=== PATIENT | female | born 1990 | race Caucasian/White ===

== ENCOUNTER 2018-05-21 17:38 | Inpatient (IN) | payer MEDICAID ==
[2018-05-21] MEDS ORDERED: Ondansetron 4 MG/2 ML SDV IVPUSH PRN (17:58)
[2018-05-21] MEDS ORDERED: Sodium Chloride 0.9% 10 ML Syringe FLUSH PRN (22:07)
[2018-05-21] MEDS ORDERED: Water For Irrigation,Sterile 1,000 ML Container IRR PRN (22:07)
[2018-05-21] MEDS ORDERED: Misoprostol 200 MCG Tab PO PRN (22:07)
[2018-05-21] MEDS ORDERED: Sodium Chloride 0.9% 2.5 ML Syringe FLUSH PRN (22:07)
[2018-05-21] MEDS ORDERED: Nalbuphine 10 MG/1 ML Vial IVPUSH PRN (22:07)
[2018-05-21] MEDS ORDERED: Lidocaine 1% 50 ML MDV INJECT PRN (22:07)
[2018-05-21] MEDS ORDERED: Tranexamic Acid 1,000 MG in Sodium Chloride 0.9% 100 ML IV PRN (22:07)
[2018-05-21] MEDS ORDERED: Ampicillin 2 GM in Sodium Chloride 0.9% 100 ML IV ONE (22:07)
[2018-05-21] MEDS ORDERED: Methylergonovine 0.2 MG/1 ML Amp IM PRN (22:07)
[2018-05-21] MEDS ORDERED: Butorphanol 1 MG/ML SDV IVPUSH PRN (22:07)
[2018-05-21] MEDS ORDERED: Carboprost Tromethamine 250 MCG/1 ML Amp IM PRN (22:07)
[2018-05-21] MEDS ORDERED: Oxytocin/0.9 % Sodium Chloride 30 UNIT/500 ML BAG IV SCH (22:15)
[2018-05-21] MEDS: Lactated Ringers 1,000 ML IV SCH (22:39)
[2018-05-22] MEDS ORDERED: fentaNYL 100 MCG/2 ML SDV ONE (01:24)
[2018-05-22] MEDS ORDERED: Bupivacaine 0.25% 10 ML SDV ONE (01:25)
--- NOTE | 2018-05-22 02:06 | PCM.PREANE ---
Preanesthetic Assessment - Anesthesia/Transfusion/Family Hx Anesthesia History: No Prior Anesthesia - Review of Systems General: No Symptoms Pulmonary: No Symptoms Cardiovascular: No Symptoms Gastrointestinal: No Symptoms Neurological: No Symptoms Other: Reports: None - Physical Assessment Height: 1.78 m Weight: 108.862 kg ASA Class: 2E Mental Status: Alert & Oriented x3 Dentition: Reports: Normal Dentition ROM/Head Extension: Full Lungs: Clear to Auscultation Cardiovascular: Regular Rate - Lab Values: Laboratory Last Values WBC 11.94 K/uL (4.0-11.0) H 05/21/18 22:31 RBC 3.82 M/uL (4.30-5.90) L 05/21/18 22:31 Hgb 11.5 g/dL (12.0-16.0) L 05/21/18 22: Hct 33.9 % (36.0-46.0) L 05/21/18 22:31 MCV 88.7 fL (80.0-98.0) 05/21/18 22: MCH 30.1 pg (27.0-32.0) 05/21/18 22: MCHC 33.9 g/dL (31.0-37.0) 05/21/18 22:31 RDW Std Deviation 45.2 fl (28.0-62.0) 05/21/18 22: RDW Coeff of Yohan 14 % (11.0-15.0) 05/21/18 22:31 Plt Count 186 K/uL (150-400) 05/21/18 22:31 MPV 12.30 fL (7.40-12.00) H 05/21/18 22:31 Nucleated RBC % 0.0 /100WBC 05/21/18 22:31 Nucleated RBCs # 0 K/uL 05/21/18 22:31 Blood Type AB POSITIVE 05/21/18 22:31 Antibody Screen NEGATIVE 05/21/18 22:31 - Allergies Allergies/Adverse Reactions: Allergies Allergy/AdvReac Type Severity Reaction Status Date / Time No Known Allergies Allergy Verified 03/31/14 06:45 - Acknowledgements Anesthesia Type Planned: Epidural Pt an Appropriate Candidate for the Planned Anesthesia: Yes Alternatives and Risks of Anesthesia Discussed w Pt/Guardian: Yes Pt/Guardian Understands and Agrees with Anesthesia Plan: Yes PreAnesthesia Questionnaire - Past Health History Medical/Surgical History: Denies Medical/Surgical History Cardiovascular History: Reports: None Respiratory History: Reports: None Gastrointestinal History: Reports: None Genitourinary History: Reports: None 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: , Spontaneous Musculoskeletal History: Reports: None, Other (See Below) Other Musculoskeletal History: Carpal tunnel syndrome Neurological History: Reports: None Psychiatric History: Reports: None Endocrine/Metabolic History: Reports: None Hematologic History: Reports: None Immunologic History: Reports: None Oncologic (Cancer) History: Reports: None Dermatologic History: Reports: None - Infectious Disease History Infectious Disease History: Reports: Chicken Pox - Past Surgical History Head Surgeries/Procedures: Reports: None - SUBSTANCE USE Smoking Status *Q: Never Smoker Tobacco Use Within Last Twelve Months: No Recreational Drug Use History: No - CURRENT (IN HOUSE) MEDS Current Meds: Current Medications Butorphanol Tartrate (Stadol) 1 mg IVPUSH Q1H PRN PRN Reason: Pain Carboprost Tromethamine (Hemabate Ds) 250 mcg IM ASDIRECTED PRN PRN Reason: Post Hemorrhage Tranexamic Acid 1,000 mg/ (Sodium Chloride) 110 mls @ 660 mls/hr IV ONETIME PRN PRN Reason: Bleeding Lactated Ringer's (Ringers, Lactated) 1,000 mls @ 150 mls/hr IV ASDIRECTED [facility] Last Admin: 05/21/18 22:39 Dose: 150 mls/hr Oxytocin/Sodium Chloride (Oxytocin 30 Unit/500 Ml-Ns) 30 unit in 500 mls @ 999 mls/hr IV TITRATE [facility] Ampicillin Sodium 1 gm/ Sodium (Chloride) 50 mls @ 100 mls/hr IV Q4H [facility] Lidocaine HCl (Xylocaine 1%) 50 ml INJECT ONETIME PRN PRN Reason: Laceration repair Methylergonovine Maleate (Methergine) 0.2 mg IM ASDIRECTED PRN PRN Reason: Post Hemorrhage Misoprostol (Cytotec) 200 mcg PO ONETIME PRN PRN Reason: Post Hemorrhage Nalbuphine HCl (Nubain) 10 mg IVPUSH Q1H PRN PRN Reason: Pain (severe 7-10) Ondansetron HCl (Zofran) 4 mg IVPUSH Q4H PRN PRN Reason: Nausea/Vomiting Sodium Chloride (Saline Flush) 10 ml FLUSH ASDIRECTED PRN PRN Reason: Keep Vein Open Sodium Chloride (Saline Flush) 2.5 ml FLUSH ASDIRECTED PRN PRN Reason: Keep Vein Open Sterile Water (Sterile Water For Irrigation) 1,000 ml IRR ASDIRECTED PRN PRN Reason: delivery Discontinued Medications Bupivacaine HCl (Sensorcaine-Mpf 0.25%) Confirm Administered Dose 10 ml .ROUTE .STK-MED ONE Stop: 05/22/18 01:26 Fentanyl (Sublimaze) Confirm Administered Dose 100 mcg .ROUTE .STK-MED ONE Stop: 05/22/18 01:25 Ampicillin Sodium 2 gm/ Sodium (Chloride) 100 mls @ 200 mls/hr IV ONETIME ONE Stop: 05/21/18 22:36 Last Admin: 05/21/18 22:42 Dose: 200 mls/hr Fentanyl/Bupivacaine HCl (Oxcxutzm-Btwlk-Ym 2 Mcg/Ml-0.125%) Confirm Administered Dose 100 mls @ as directed .ROUTE .STK-MED ONE Stop: 05/22/18 01:26
[2018-05-22] MEDS: Ampicillin 1 GM in Sodium Chloride 0.9% 50 ML IV SCH ×2 (02:45→06:36)
[2018-05-22] MEDS: Lactated Ringers 1,000 ML IV SCH (03:36)
[2018-05-22] MEDS ORDERED: Terbutaline 1 MG/ML SDV SUBCUT PRN (04:18)
[2018-05-22] MEDS ORDERED: Oxytocin/0.9 % Sodium Chloride 30 UNIT/500 ML BAG IV SCH (04:30)
[2018-05-22] MEDS ORDERED: Benzocaine/Menthol 20%-0.5% Spray 78 GM Cannister TOP PRN (09:22)
[2018-05-22] MEDS ORDERED: Bisacodyl 10 MG Supp RECTAL PRN (09:22)
[2018-05-22] MEDS ORDERED: Witch Hazel Medicated Pads 40/Jar TOP PRN (09:22)
[2018-05-22] MEDS ORDERED: Acetaminophen 500 MG Tab PO PRN (09:22)
[2018-05-22] MEDS ORDERED: Docusate Sodium 100 MG Cap PO PRN (09:22)
[2018-05-22] MEDS ORDERED: Aluminum Hydroxide/Magnesium Hydroxide/Simethicone Susp 30 ML Cup PO PRN (09:22)
[2018-05-22] MEDS ORDERED: Ibuprofen 800 MG Tab PO PRN (09:22)
[2018-05-22] MEDS ORDERED: Lanolin 100% Cream 7 GM Tube TOP PRN (09:22)
[2018-05-22] MEDS ORDERED: oxyCODONE 5 MG Tab PO PRN (09:22)
[2018-05-22] MEDS ORDERED: Ibuprofen 400 MG Tab PO PRN (09:22)
--- NOTE | 2018-05-22 09:29 | PCM.OPNOTE ---
- General Post-Op/Procedure Note Date of Surgery/Procedure: 05/22/18 Operative Procedure(s): /2nd MLL repaired Findings: Viable female APGARs 9, 9 weight 4270 gm. Spontaneous delivery intact placenta with 3V cord. Light meconium stained amniotic fluid. Pre Op Diagnosis: 39 week IUP. Labor Post-Op Diagnosis: Same Anesthesia Technique: Epidural Primary Surgeon: Mecca Wagner EBL in mLs: 250 Complications: none known Condition: Good Free Text/Narrative:: Dictation [id number]
--- NOTE | 2018-05-22 10:40 | OR ---
SURGEON: Mecca Wagner M.D. DATE OF PROCEDURE: 05/22/2018 PREOPERATIVE DIAGNOSES: 1. 39 weeks intrauterine . 2. Active labor. POSTOPERATIVE DIAGNOSES: 1. 39 weeks intrauterine . 2. Active labor. PROCEDURES: Spontaneous vaginal delivery. Second-degree midline laceration repaired. ANESTHESIA: Epidural. ESTIMATED BLOOD LOSS: 250 mL. FINDINGS: Viable female. scores 9 at 1 minute, 9 at 5 minutes. Weight 4270 g. Spontaneous delivery, intact placenta, 3-vessel cord, light meconium-stained amniotic fluid. DISPOSITION: The patient to [facility] and to nursery, stable. PROCEDURE IN DETAIL: Darlene is a 28-year-old, G7, P4-0-2-4 at 38 weeks 6 days upon admission on the evening of 05/21/2018, in early active labor. Upon admission, routine labs drawn, IV hydration was initiated. heart tones category 1. The patient progressed, became increasingly uncomfortable, underwent regional anesthesia for epidural, became more comfortable. She received her ampicillin prophylaxis x2 doses. Underwent amniotomy at approximately 3:00 a.m., light meconium-stained amniotic fluid was noted. She was found to be 5 cm at that time. The patient made slow progress for the next 2 hours, therefore was initiated on Pitocin augmentation. Shortly before 7:00 a.m., she was found to be 7 cm. Shortly before 9:00 a.m., I assumed care of th patient and she was found to be 9 cm and then progressed fairly rapidly to complete 100% effaced, +3 station, feeling the urge to push. Upon my arrival, the patient was placed in modified dorsal lithotomy position, was prepped and draped in the usual aseptic manner. With next contraction was able to push to deliver infant's head atraumatically, spontaneously, followed by anterior shoulder, posterior shoulder, and remainder of the body. The infant's oropharynx and nares bulb suctioned. Cord clamped x2 and cut. Infant was handed off to her mother, attending nursing staff at side. Cord arterial, cord venous, cord blood samples obtained. Light pressure was applied. The placenta was delivered spontaneously intact. Vigorous fundal uterine massage was then applied while 30 units of Pitocin was delivered in 500 mL of IV fluid. Upon inspection of cervix, vaginal sidewall, and perineum, there was found to be a second-degree midline laceration that was repaired using 3-0 Vicryl in the usual fashion. Uterus remained firm. Hemostasis remained evident. Sponge count and needle count were correct. The patient remained in LDRP, infant in nursery. RENETTA / JUWAN /[id number] MTDD
[2018-05-22] MEDS: Acetaminophen 500 MG Tab PO PRN ×2 (16:50→22:23)
--- NOTE | 2018-05-23 07:15 | PCM48HPAN ---
Post Anesthesia Note - EVALUATION WITHIN 48HRS OF ANESTHETIC Vital Signs in Normal Range: Yes Patient Participated in Evaluation: Yes Respiratory Function Stable: Yes Airway Patent: Yes Cardiovascular Function Stable: Yes Hydration Status Stable: Yes Pain Control Satisfactory: Yes Nausea and Vomiting Control Satisfactory: Yes Mental Status Recovered: Yes Resp Rate: 17
--- NOTE | 2018-05-23 08:43 | PCM.PNPP ---
- General Info Date of Service: 05/23/18 Functional Status: Reports: Pain Controlled, Tolerating Diet, Ambulating, Urinating - Review of Systems General: Reports: Fatigue. Denies: Fever, Weakness Pulmonary: Denies: Shortness of Breath Cardiovascular: Denies: Chest Pain, Palpitations, Lightheadedness Gastrointestinal: Denies: Abdominal Pain, Nausea, Vomiting Genitourinary: Denies: Flank Pain Skin: Reports: No Symptoms Psychiatric: Reports: No Symptoms - General Info Date of Service: 05/23/18 - Patient Data Vital Signs - Most Recent: Last Vital Signs Temp 36.0 C 05/22/18 16:30 Pulse 63 05/22/18 16:30 Resp 17 05/23/18 07:15 BP 119/68 05/22/18 16:30 Pulse Ox 98 05/22/18 16:30 Weight - Most Recent: 108.862 kg Lab Results - Last 24 Hours: Laboratory Results - last 24 hr 05/22/18 05/23/18 Range/Units 09:23 05:25 Hgb 10.5 L (12.0-16.0) g/dL Hct 31.3 L (36.0-46.0) % Cord ABG pH 7.230 (7.18-7.38) Cord ABG Base Excess -6 (-10--2) Cord VBG pH 7.294 (7.25-7.45) Cord VBG Base Excess -7 (-10--2) Med Orders - Current: Current Medications Acetaminophen (Tylenol Extra Strength) 500 mg PO Q4H PRN PRN Reason: Pain Acetaminophen (Tylenol Extra Strength) 1,000 mg PO Q4H PRN PRN Reason: Pain Last Admin: 05/22/18 22:23 Dose: 1,000 mg Al Hydroxide/Mg Hydroxide (Mag-Al Plus) 30 ml PO Q8H PRN PRN Reason: Heartburn Benzocaine/Menthol (Dermoplast Pain Relief 20%-0.5% [place]) 78 gm TOP ASDIRECTED PRN PRN Reason: Perineal Comfort Measure Bisacodyl (Dulcolax) 10 mg RECTAL ONETIME PRN PRN Reason: Constipation Carboprost Tromethamine (Hemabate Ds) 250 mcg IM ASDIRECTED PRN PRN Reason: Post Hemorrhage Docusate Sodium (Colace) 100 mg PO BID PRN PRN Reason: Constipation Last Admin: 05/22/18 23:47 Dose: 100 mg Emollient Ointment (Lansinoh Hpa) 0 gm TOP ASDIRECTED PRN PRN Reason: Sore Nipples Tranexamic Acid 1,000 mg/ (Sodium Chloride) 110 mls @ 660 mls/hr IV ONETIME PRN PRN Reason: Bleeding Lactated Ringer's (Ringers, Lactated) 1,000 mls @ 150 mls/hr IV ASDIRECTED [facility] Last Admin: 05/22/18 03:36 Dose: 125 mls/hr Oxytocin/Sodium Chloride (Oxytocin 30 Unit/500 Ml-Ns) 30 unit in 500 mls @ 999 mls/hr IV TITRATE [facility] Oxytocin/Sodium Chloride (Oxytocin 30 Unit/500 Ml-Ns) 30 unit in 500 mls @ 2 mls/hr IV TITRATE [facility]; Protocol Last Titration: 05/22/18 09:07 Dose: 999 munits/min, 999 mls/hr Ibuprofen (Motrin) 400 mg PO Q4H PRN PRN Reason: Pain Ibuprofen (Motrin) 800 mg PO Q6H PRN PRN Reason: Pain Methylergonovine Maleate (Methergine) 0.2 mg IM ASDIRECTED PRN PRN Reason: Post Hemorrhage Ondansetron HCl (Zofran) 4 mg IVPUSH Q4H PRN PRN Reason: Nausea/Vomiting Oxycodone HCl (Oxycodone) 5 mg PO Q2H PRN PRN Reason: Pain Sodium Chloride (Saline Flush) 10 ml FLUSH ASDIRECTED PRN PRN Reason: Keep Vein Open Sodium Chloride (Saline Flush) 2.5 ml FLUSH ASDIRECTED PRN PRN Reason: Keep Vein Open Sterile Water (Sterile Water For Irrigation) 1,000 ml IRR ASDIRECTED PRN PRN Reason: delivery Last Admin: 05/22/18 09:05 Dose: 1,000 ml Witch Fe (Tucks) 1 pad TOP ASDIRECTED PRN PRN Reason: comfort care Discontinued Medications Bupivacaine HCl (Sensorcaine-Mpf 0.25%) Confirm Administered Dose 10 ml .ROUTE .STK-MED ONE Stop: 05/22/18 01:26 Butorphanol Tartrate (Stadol) 1 mg IVPUSH Q1H PRN PRN Reason: Pain Fentanyl (Sublimaze) Confirm Administered Dose 100 mcg .ROUTE .STK-MED ONE Stop: 05/22/18 01:25 Ampicillin Sodium 2 gm/ Sodium (Chloride) 100 mls @ 200 mls/hr IV ONETIME ONE Stop: 05/21/18 22:36 Last Admin: 05/21/18 22:42 Dose: 200 mls/hr Ampicillin Sodium 1 gm/ Sodium (Chloride) 50 mls @ 100 mls/hr IV Q4H [facility] Last Admin: 05/22/18 06:36 Dose: 100 mls/hr Fentanyl/Bupivacaine HCl (Kktkiuqh-Ntfxd-Pp 2 Mcg/Ml-0.125%) Confirm Administered Dose 100 mls @ as directed .ROUTE .STK-MED ONE Stop: 05/22/18 01:26 Lidocaine HCl (Xylocaine 1%) 50 ml INJECT ONETIME PRN PRN Reason: Laceration repair Misoprostol (Cytotec) 200 mcg PO ONETIME PRN PRN Reason: Post Hemorrhage Nalbuphine HCl (Nubain) 10 mg IVPUSH Q1H PRN PRN Reason: Pain (severe 7-10) Terbutaline Sulfate (Brethine) 0.25 mg SUBCUT ASDIRECTED PRN PRN Reason: Tacysystole - Infant Interaction Support Person: - Recovery Exam Fundal Tone: Firm Fundal Level: At Umbilicus Fundal Placement: Midline Lochia Amount: Small Lochia Color: Rubra/Red Perineum Description: Edematous Episiotomy/Laceration: None Bladder Status: Voiding Urinary Elimination: Voided - Exam General: Alert, Oriented Lungs: Normal Respiratory Effort Cardiovascular: Regular Rate, Regular Rhythm GI/Abdominal Exam: Normal Bowel Sounds, Soft Extremities: Pedal Edema (trace), Pallor. No: Radha's Sign Skin: Warm, Dry, Intact Neurological: No New Focal Deficit Psy/Mental Status: Alert, Normal Affect, Normal Mood - Problem List & Annotations (1) Vaginal delivery SNOMED Code(s): 644868941 Code(s): O80 - ENCOUNTER FOR FULL-TERM UNCOMPLICATED DELIVERY Status: Acute Current Visit: No - Problem List Review Problem List Initiated/Reviewed/Updated: Yes - My Orders Last 24 Hours: My Active Orders 05/22/18 09:22 Patient Status [ADT] Routine May Shower [RC] ASDIRECTED Up ad Cynthia [RC] ASDIRECTED Vital Signs [RC] PER UNIT ROUTINE Acetaminophen [Tylenol Extra Strength] 1,000 mg PO Q4H PRN Acetaminophen [Tylenol Extra Strength] 500 mg PO Q4H PRN Alum Hydrox/Mag Hydrox/Simeth [Mag-Al Plus] 30 ml PO Q8H PRN Benzocaine/Menthol [Dermoplast Pain Relief 20%-0.5% [place]] 78 gm TOP ASDIRECTED PRN Bisacodyl [Dulcolax] 10 mg RECTAL ONETIME PRN Docusate Sodium [Colace] 100 mg PO BID PRN Ibuprofen [Motrin] 400 mg PO Q4H PRN Ibuprofen [Motrin] 800 mg PO Q6H PRN Lanolin [Lansinoh HPA] See Dose Instructions TOP ASDIRECTED PRN Witch Fe [Tucks] 1 pad TOP ASDIRECTED PRN oxyCODONE 5 mg PO Q2H PRN Assess Lochia [WOMSER] Per Unit Routine Assess Uterine Involution [WOMSER] Per Unit Routine Breast Pump [WOMSER] Per Unit Routine Ice Therapy [OM.PC] Per Unit Routine Perineal Care [OM.PC] Per Unit Routine Peripheral IV Discontinue [OM.PC] Routine 05/23/18 08:40 Ready for Discharge [RC] PER UNIT ROUTINE - Assessment Assessment:: PPD 1 status post /2nd MLL repaired - Plan Plan:: Doing well overall. VS and labs are stable. Would like to go home today. Discharge to home. Discharge instructions reviewed. Follow up at [facility] 6 weeks.
[2018-05-23 09:31] VITALS: BP 118/75
== END 2018-05-23 11:55 | disposition home or self-care (01) | DRG 807 ==
LOC: MW.OBCHECK 17:38 → MW.OB 17:40 → MW.OBCHECK 22:08 → MW.OB 05-22 04:41 → OBSVTOIN 05-22 09:07 → MW.OB 05-22 12:15
PROVIDERS: ADMIT Obstetrics & Gynecology; ATTEND Obstetrics & Gynecology
PROC: 10907ZC Drainage of Amniotic Fluid, Therapeutic from Products of Conception, Via Natural or Artificial Opening (ICD-10-PCS; principal; 2018-05-22)
PROC: 6A550ZT Pheresis of Cord Blood Stem Cells, Single (ICD-10-PCS; principal; 2018-05-22)
PROC: 0KQM0ZZ Repair Perineum Muscle, Open Approach (ICD-10-PCS; principal; 2018-05-22)
PROC: 10E0XZZ Delivery of Products of Conception, External Approach (ICD-10-PCS; principal; 2018-05-22)
PROC: 3E0R3BZ Introduction of Anesthetic Agent into Spinal Canal, Percutaneous Approach (ICD-10-PCS; 2018-05-22)
PROC: 00HU33Z Insertion of Infusion Device into Spinal Canal, Percutaneous Approach (ICD-10-PCS; 2018-05-22)
DX: O99.824 Streptococcus B carrier state complicating childbirth (principal); Z37.0 Single live birth; O77.0 Labor and delivery complicated by meconium in amniotic fluid; O70.1 Second degree perineal laceration during delivery; Z3A.38 38 weeks gestation of pregnancy
CPT/HCPCS: 36415; 59025; 59409; 82803; 85014; 85018; 85027; 86850; 86900; 86901; A9270-GY; J0290; J2590; J3010; J3490; J7030; J7050; J7120

== ENCOUNTER 2019-09-05 20:12 | Inpatient (IN) | payer BC ==
[2019-09-05] MEDS ORDERED: Sodium Chloride 0.9% 10 ML Syringe FLUSH PRN (22:05)
[2019-09-05] MEDS ORDERED: Sodium Chloride 0.9% 10 ML SDV IV PRN (22:05)
[2019-09-05] MEDS ORDERED: Butorphanol 1 MG/ML SDV IVPUSH PRN (22:05)
[2019-09-05] MEDS ORDERED: Methylergonovine 0.2 MG/1 ML Amp IM PRN (22:05)
[2019-09-05] MEDS ORDERED: Nalbuphine 10 MG/1 ML Vial IVPUSH PRN (22:05)
[2019-09-05] MEDS ORDERED: Carboprost Tromethamine 250 MCG/1 ML Amp IM PRN (22:05)
[2019-09-05] MEDS ORDERED: Misoprostol 200 MCG Tab PO PRN (22:05)
[2019-09-05] MEDS ORDERED: Water For Irrigation,Sterile 1,000 ML Container IRR PRN (22:05)
[2019-09-05] MEDS ORDERED: Tranexamic Acid 1,000 MG in Sodium Chloride 0.9% 100 ML IV PRN (22:05)
[2019-09-05] MEDS ORDERED: Lidocaine 1% 50 ML MDV INJECT PRN (22:05)
[2019-09-05] MEDS ORDERED: Sodium Chloride 0.9% 2.5 ML Syringe FLUSH PRN (22:05)
[2019-09-05] MEDS ORDERED: Oxytocin/0.9 % Sodium Chloride 30 UNIT/500 ML BAG IV SCH (22:15)
[2019-09-06] MEDS: Lactated Ringers 1,000 ML IV SCH ×2 (00:25→01:52)
[2019-09-06] MEDS ORDERED: Ropivacaine HCl/PF 100 ML ONE (01:09)
[2019-09-06] MEDS ORDERED: fentaNYL 100 MCG/2 ML SDV ONE (01:09)
--- NOTE | 2019-09-06 01:32 | PCM.PREANE ---
Preanesthetic Assessment - Anesthesia/Transfusion/Family Hx Anesthesia History: Prior Anesthesia Without Reaction Family History of Anesthesia Reaction: No Transfusion History: No Prior Transfusion(s) - Physical Assessment NPO Status Date: 09/05/19 NPO Status Time: 22:00 Height: 1.78 m Weight: 107.048 kg ASA Class: 1 - Lab Values: Laboratory Last Values WBC 11.87 K/uL (4.0-11.0) H 09/05/19 22:18 RBC 4.04 M/uL (4.30-5.90) L 09/05/19 22:18 Hgb 11.8 g/dL (12.0-16.0) L 09/05/19 22:18 Hct 35.9 % (36.0-46.0) L 09/05/19 22:18 MCV 88.9 fL (80.0-98.0) 09/05/19 22:18 MCH 29.2 pg (27.0-32.0) 09/05/19 22:18 MCHC 32.9 g/dL (31.0-37.0) 09/05/19 22:18 RDW Std Deviation 47.0 fl (28.0-62.0) 09/05/19 22:18 RDW Coeff of Yohan 14 % (11.0-15.0) 09/05/19 22:18 Plt Count 179 K/uL (150-400) 09/05/19 22:18 MPV 12.70 fL (7.40-12.00) H 09/05/19 22:18 Nucleated RBC % 0.0 /100WBC 09/05/19 22:18 Nucleated RBCs # 0 K/uL 09/05/19 22:18 Blood Type AB POSITIVE 09/05/19 22:18 Antibody Screen NEGATIVE 09/05/19 22:18 - Allergies Allergies/Adverse Reactions: Allergies Allergy/AdvReac Type Severity Reaction Status Date / Time No Known Allergies Allergy Verified 03/31/14 06:45 - Acknowledgements Anesthesia Type Planned: Epidural Pt an Appropriate Candidate for the Planned Anesthesia: Yes Alternatives and Risks of Anesthesia Discussed w Pt/Guardian: Yes Pt/Guardian Understands and Agrees with Anesthesia Plan: Yes PreAnesthesia Questionnaire - Past Health History Medical/Surgical History: Denies Medical/Surgical History Cardiovascular History: Reports: None Respiratory History: Reports: None Gastrointestinal History: Reports: None Genitourinary History: Reports: None 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: , Spontaneous Musculoskeletal History: Reports: Other (See Below) Other Musculoskeletal History: Carpal tunnel syndrome Neurological History: Reports: None Psychiatric History: Reports: None Endocrine/Metabolic History: Reports: None Hematologic History: Reports: None Immunologic History: Reports: None Oncologic (Cancer) History: Reports: None Dermatologic History: Reports: None - Infectious Disease History Infectious Disease History: Reports: Chicken Pox - Past Surgical History Head Surgeries/Procedures: Reports: None - SUBSTANCE USE Smoking Status *Q: Never Smoker Second Hand Smoke Exposure: No Recreational Drug Use History: No - HOME MEDS Home Medications: Home Meds . [No Known Home Meds] 09/05/19 [History] - CURRENT (IN HOUSE) MEDS Current Meds: Current Medications Butorphanol Tartrate (Stadol) 1 mg IVPUSH Q1H PRN PRN Reason: Pain Carboprost Tromethamine (Hemabate Ds) 250 mcg IM ASDIRECTED PRN PRN Reason: Post Hemorrhage Tranexamic Acid 1,000 mg/ (Sodium Chloride) 110 mls @ 660 mls/hr IV ONETIME PRN PRN Reason: Bleeding Lactated Ringer's (Ringers, Lactated) 1,000 mls @ 150 mls/hr IV ASDIRECTED [facility] Last Infusion: 09/06/19 01:19 Dose: 700 mls/hr Oxytocin/Sodium Chloride (Oxytocin 30 Unit/500 Ml-Ns) 30 unit in 500 mls @ 999 mls/hr IV TITRATE [facility] Lidocaine HCl (Xylocaine 1%) 50 ml INJECT ONETIME PRN PRN Reason: Laceration repair Methylergonovine Maleate (Methergine) 0.2 mg IM ASDIRECTED PRN PRN Reason: Post Hemorrhage Misoprostol (Cytotec) 200 mcg PO ONETIME PRN PRN Reason: Post Hemorrhage Nalbuphine HCl (Nubain) 10 mg IVPUSH Q1H PRN PRN Reason: Pain (severe 7-10) Sodium Chloride (Saline Flush) 10 ml FLUSH ASDIRECTED PRN PRN Reason: Keep Vein Open Sodium Chloride (Saline Flush) 2.5 ml FLUSH ASDIRECTED PRN PRN Reason: Keep Vein Open Sodium Chloride (Normal Saline) 10 ml IV ASDIRECTED PRN PRN Reason: IV Use Sterile Water (Sterile Water For Irrigation) 1,000 ml IRR ASDIRECTED PRN PRN Reason: delivery Discontinued Medications Fentanyl (Sublimaze) Confirm Administered Dose 100 mcg .ROUTE .STK-MED ONE Stop: 09/06/19 01:10 Ropivacaine (Naropin 0.2%) Confirm Administered Dose 100 mls @ as directed .ROUTE .STK-MED ONE Stop: 09/06/19 01:10
--- NOTE | 2019-09-06 01:35 | PCM.PRNOTE ---
- Free Text/Narrative Note: Anes Note Patient requests epidural for L&D. Sitting position, level L3-L4 midline approach. Chloraprep scrub to lumbar area. Sterile fenestrated drape applied. Epidural space easily achieved single attempt with ease using SAUNDRA technique. SAUNDRA at 4 cm. Cath threaded 5 cm with ease. Cath secured at skin at 11 cm using sterile clear adhesive dressing. Karen well Test 0125 3 cc 1.5% lido with epi negative. 0128 Load 10 cc 0.2% ropivicaine with 1 mcg cc fentanyl in slow divided doses. Time with patient [id number] Sean Alan CRNA
[2019-09-06] MEDS ORDERED: Oxytocin/0.9 % Sodium Chloride 30 UNIT/500 ML BAG IV SCH (02:15)
[2019-09-06] MEDS ORDERED: Docusate Sodium 100 MG Cap PO PRN (08:10)
[2019-09-06] MEDS ORDERED: Benzocaine/Menthol 20%-0.5% Spray 78 GM Cannister TOP PRN (08:10)
[2019-09-06] MEDS ORDERED: Acetaminophen 500 MG Tab PO PRN (08:10)
[2019-09-06] MEDS ORDERED: Witch Hazel Medicated Pads 40/Jar TOP PRN (08:10)
[2019-09-06] MEDS ORDERED: Lanolin 100% Cream 7 GM Tube TOP PRN (08:10)
[2019-09-06] MEDS ORDERED: Ibuprofen 400 MG Tab PO PRN (08:10)
[2019-09-06] MEDS ORDERED: Bisacodyl 10 MG Supp RECTAL PRN (08:10)
--- NOTE | 2019-09-06 08:17 | PCM.DEL ---
L & D Note - General Info Date of Service: 09/06/19 - Delivery Note Labor: Spontaneous, Augmented by ARM, Augmented by Oxytocin Delivery Outcome: Livebirth Infant Delivery Method: Spontaneous Vaginal Delivery-Single Presentation: Vertex Nuchal Cord: Present, Reduced Anesthesia Type: Epidural Amniotic Fluid Description: Clear Episiotomy Type: None Laceration: 1st Degree Suture size: 3-0 Placenta: Intact, Spontaneous Cord: 3 Vessels Resuscitation Needed: No [place]: Suctioned, Bulb Syringe - General Info Date of Service: 09/06/19 - Patient Data Weight - Most Recent: 236 lb Lab Results Last 24 Hours: Laboratory Results - last 24 hr 09/05/19 09/05/19 Range/Units 22:18 22:18 WBC 11.87 H (4.0-11.0) K/uL RBC 4.04 L (4.30-5.90) M/uL Hgb 11.8 L (12.0-16.0) g/dL Hct 35.9 L (36.0-46.0) % MCV 88.9 (80.0-98.0) fL MCH 29.2 (27.0-32.0) pg MCHC 32.9 (31.0-37.0) g/dL RDW Std Deviation 47.0 (28.0-62.0) fl RDW Coeff of Yohan 14 (11.0-15.0) % Plt Count 179 (150-400) K/uL MPV 12.70 H (7.40-12.00) fL Nucleated RBC % 0.0 /100WBC Nucleated RBCs # 0 K/uL Blood Type AB POSITIVE Antibody Screen NEGATIVE Med Orders - Current: Current Medications Acetaminophen (Tylenol Extra Strength) 500 mg PO Q4H PRN PRN Reason: Pain Acetaminophen (Tylenol Extra Strength) 1,000 mg PO Q4H PRN PRN Reason: Pain Benzocaine/Menthol (Dermoplast Pain Relief 20%-0.5% [place]) 78 gm TOP ASDIRECTED PRN PRN Reason: Perineal Comfort Measure Bisacodyl (Dulcolax) 10 mg RECTAL ONETIME PRN PRN Reason: Constipation Butorphanol Tartrate (Stadol) 1 mg IVPUSH Q1H PRN PRN Reason: Pain Carboprost Tromethamine (Hemabate Ds) 250 mcg IM ASDIRECTED PRN PRN Reason: Post Hemorrhage Docusate Sodium (Colace) 100 mg PO BID PRN PRN Reason: Constipation Emollient Ointment (Lansinoh Hpa) 0 gm TOP ASDIRECTED PRN PRN Reason: Sore Nipples Tranexamic Acid 1,000 mg/ (Sodium Chloride) 110 mls @ 660 mls/hr IV ONETIME PRN PRN Reason: Bleeding Lactated Ringer's (Ringers, Lactated) 1,000 mls @ 150 mls/hr IV ASDIRECTED BARBARA Last Infusion: 09/06/19 01:54 Dose: 150 mls/hr Oxytocin/Sodium Chloride (Oxytocin 30 Unit/500 Ml-Ns) 30 unit in 500 mls @ 999 mls/hr IV TITRATE BARBARA Last Infusion: 09/06/19 07:50 Dose: 500 mls/hr Oxytocin/Sodium Chloride (Oxytocin 30 Unit/500 Ml-Ns) 30 unit in 500 mls @ 2 mls/hr IV TITRATE [facility]; Protocol Last Infusion: 09/06/19 07:36 Dose: 0 munits/min, 0 mls/hr Ibuprofen (Motrin) 400 mg PO Q4H PRN PRN Reason: Pain Ibuprofen (Motrin) 800 mg PO Q6H PRN PRN Reason: Pain Lidocaine HCl (Xylocaine 1%) 50 ml INJECT ONETIME PRN PRN Reason: Laceration repair Methylergonovine Maleate (Methergine) 0.2 mg IM ASDIRECTED PRN PRN Reason: Post Hemorrhage Misoprostol (Cytotec) 200 mcg PO ONETIME PRN PRN Reason: Post Hemorrhage Nalbuphine HCl (Nubain) 10 mg IVPUSH Q1H PRN PRN Reason: Pain (severe 7-10) Sodium Chloride (Saline Flush) 10 ml FLUSH ASDIRECTED PRN PRN Reason: Keep Vein Open Sodium Chloride (Saline Flush) 2.5 ml FLUSH ASDIRECTED PRN PRN Reason: Keep Vein Open Sodium Chloride (Normal Saline) 10 ml IV ASDIRECTED PRN PRN Reason: IV Use Sterile Water (Sterile Water For Irrigation) 1,000 ml IRR ASDIRECTED PRN PRN Reason: delivery Last Admin: 09/06/19 07:30 Dose: 1,000 ml Witch Fe (Tucks) 1 pad TOP ASDIRECTED PRN PRN Reason: comfort care Discontinued Medications Fentanyl (Sublimaze) Confirm Administered Dose 100 mcg .ROUTE .STK-MED ONE Stop: 09/06/19 01:10 Ropivacaine (Naropin 0.2%) Confirm Administered Dose 100 mls @ as directed .ROUTE .STK-MED ONE Stop: 09/06/19 01:10 - Problem List Review Problem List Initiated/Reviewed/Updated: Yes - My Orders Last 24 Hours: My Active Orders 09/05/19 20:27 Resuscitation Status Routine 09/05/19 20:28 Non Stress Test [RC] PER UNIT ROUTINE Up ad Cynthia [RC] ASDIRECTED Vaginal Exam [RC] Click to Edit Vital Signs [RC] PER UNIT ROUTINE 09/05/19 22:05 Butorphanol [Stadol] 1 mg IVPUSH Q1H PRN Carboprost Tromethamine [Hemabate DS] 250 mcg IM ASDIRECTED PRN Lidocaine 1% [Xylocaine 1%] 50 ml INJECT ONETIME PRN Methylergonovine [Methergine] 0.2 mg IM ASDIRECTED PRN Nalbuphine [Nubain] 10 mg IVPUSH Q1H PRN Sodium Chloride 0.9% [Normal Saline] 10 ml IV ASDIRECTED PRN Sodium Chloride 0.9% [Saline Flush] 10 ml FLUSH ASDIRECTED PRN Sodium Chloride 0.9% [Saline Flush] 2.5 ml FLUSH ASDIRECTED PRN Tranexamic Acid [Cyklokapron] 1,000 mg Sodium Chloride 0.9% [Normal Saline] 100 ml IV ONETIME Water For Irrigation,Sterile [Sterile Water for Irrigation] 1,000 ml IRR ASDIRECTED PRN miSOPROStoL [Cytotec] 200 mcg PO ONETIME PRN 09/05/19 22:06 Heart Tones [RC] CONTINUOUS Non Stress Test [RC] PER UNIT ROUTINE May Shower [RC] ASDIRECTED Notify Provider [RC] PRN Up ad Cynthia [RC] ASDIRECTED Vaginal Exam [RC] PRN Vital Signs [RC] PER UNIT ROUTINE Scalp Electrode [WOMSER] Per Unit Routine Peripheral IV Insertion Adult [OM.PC] Routine 09/05/19 22:15 Lactated Ringers [Ringers, Lactated] 1,000 ml IV ASDIRECTED Oxytocin/0.9 % Sodium Chloride [Oxytocin 30 Unit/500 ML-NS] 30 unit in 500 ml IV TITRATE 09/05/19 22:18 RPR (SYPHILIS SERO) W/ RFLX [REF] Routine 09/06/19 02:15 Oxytocin/0.9 % Sodium Chloride [Oxytocin 30 Unit/500 ML-NS] 30 unit in 500 ml IV TITRATE 09/06/19 08:10 Patient Status [ADT] Routine May Shower [RC] ASDIRECTED Up ad Cynthia [RC] ASDIRECTED Vital Signs [RC] PER UNIT ROUTINE Acetaminophen [Tylenol Extra Strength] 1,000 mg PO Q4H PRN Acetaminophen [Tylenol Extra Strength] 500 mg PO Q4H PRN Benzocaine/Menthol [Dermoplast Pain Relief 20%-0.5% [place]] 78 gm TOP ASDIRECTED PRN Docusate Sodium [Colace] 100 mg PO BID PRN Ibuprofen [Motrin] 400 mg PO Q4H PRN Ibuprofen [Motrin] 800 mg PO Q6H PRN Lanolin [Lansinoh HPA] See Dose Instructions TOP ASDIRECTED PRN bisacodyL [Dulcolax] 10 mg RECTAL ONETIME PRN witch Fe [Tucks] 1 pad TOP ASDIRECTED PRN Assess Lochia [WOMSER] Per Unit Routine Assess Uterine Involution [WOMSER] Per Unit Routine Breast Pump [WOMSER] Per Unit Routine Peripheral IV Discontinue [OM.PC] Routine 09/06/19 08:11 Perineal Care [OM.PC] Per Unit Routine Sitz Bath [OM.PC] Per Unit Routine 09/06/19 Breakfast Regular Diet [DIET] 09/07/19 05:11 HEMOGLOBIN/HEMATOCRIT,HH [HEME] Timed - Assessment Assessment:: 29yo PPD0 s/p labor and uncomplicated at 40w1d - Plan Plan:: Routine care.
--- NOTE | 2019-09-06 08:42 | PCM48HPAN ---
Post Anesthesia Note - EVALUATION WITHIN 48HRS OF ANESTHETIC Vital Signs in Normal Range: Yes Patient Participated in Evaluation: Yes Respiratory Function Stable: Yes Airway Patent: Yes Cardiovascular Function Stable: Yes Hydration Status Stable: Yes Pain Control Satisfactory: Yes Nausea and Vomiting Control Satisfactory: Yes Mental Status Recovered: Yes
[2019-09-06] MEDS: Ibuprofen 800 MG Tab PO PRN ×3 (09:32→22:58)
--- NOTE | 2019-09-06 16:14 | OR ---
SURGEON: Alonso Ambriz MD DATE OF PROCEDURE: 09/06/2019 INDICATION FOR PROCEDURE: A 29-year-old G8, P5-0-2-5, presenting in early labor at 40 weeks and 2 day. The patient was initially 3 cm dilated and progressed to 4 cm after 2 hours. She received an epidural for pain. She continued to progress and had AROM for augmentation of labor. Her contractions spaced out. She was also given Pitocin for augmentation and progressed to fully dilated. She had category 1 tracing. GBS was negative. PREOPERATIVE DIAGNOSIS: Ald[place] intrauterine at 40 weeks and 2 day. POSTOPERATIVE DIAGNOSIS: Ald[place] intrauterine at 40 weeks and 2 day. PROCEDURE PERFORMED: Normal spontaneous vaginal delivery, repair of first-degree laceration. ANESTHESIA: Epidural. ANESTHESIOLOGIST: Dr. Smith. FINDINGS: Viable male , scores of 8 and 8, weight of 9 pounds. Nuchal cord x1, tight and reduced after delivery. ESTIMATED BLOOD LOSS: 200 mL. DESCRIPTION OF PROCEDURE: The patient pushed with contractions for approximately 10 minutes. head delivered in occiput anterior position over intact perineum. Anterior shoulder delivered easily. Tight nuchal cord was noted. Posterior shoulder then delivered followed by the remaining body. Nuchal cord was reduced after delivery. Baby was placed on maternal chest and evaluated by awaiting nursery staff. Baby was pink, crying, and moving all extremities immediately after delivery. Umbilical cord was clamped and cut after 60 seconds and no longer pulsating. The placenta was removed with gentle traction on the umbilical cord. Cord gases were obtained. The placenta was examined and found to be intact with 3-vessel cord. Uterus was firm and below the umbilicus and the bleeding was light. Perineum was examined and first-degree laceration was noted. It was repaired with 3-0 Vicryl in the usual fashion. Hemostasis was confirmed. The patient tolerated the procedure well, was given care instructions. JAZMYN / JUWAN /[id number] MTDD
[2019-09-06] MEDS: Acetaminophen 500 MG Tab PO PRN (21:34)
[2019-09-07] MEDS: Acetaminophen 500 MG Tab PO PRN (03:45)
[2019-09-07] MEDS: Ibuprofen 800 MG Tab PO PRN (06:14)
[2019-09-07 09:46] VITALS: BP 106/61; PULSE 56
--- NOTE | 2019-09-07 10:32 | PCM.PNPP ---
- General Info Date of Service: 09/07/19 Functional Status: Reports: Pain Controlled, Tolerating Diet, Ambulating, Urinating - Review of Systems General: Reports: No Symptoms HEENT: Reports: No Symptoms Pulmonary: Reports: No Symptoms Cardiovascular: Reports: No Symptoms Gastrointestinal: Reports: No Symptoms Genitourinary: Reports: No Symptoms Musculoskeletal: Reports: No Symptoms Skin: Reports: No Symptoms Neurological: Reports: No Symptoms Psychiatric: Reports: No Symptoms - General Info Date of Service: 09/07/19 - Patient Data Vital Signs - Most Recent: Last Vital Signs Temp 35.9 C L 09/07/19 08:40 Pulse 56 L 09/07/19 08:40 Resp 16 09/07/19 08:40 BP 106/61 09/07/19 08:40 Pulse Ox 97 09/07/19 08:40 Weight - Most Recent: 107.048 kg Lab Results - Last 24 Hours: Laboratory Results - last 24 hr 09/07/19 Range/Units 06:05 Hgb 10.6 L (12.0-16.0) g/dL Hct 32.7 L (36.0-46.0) % Med Orders - Current: Current Medications Acetaminophen (Tylenol Extra Strength) 500 mg PO Q4H PRN PRN Reason: Pain Acetaminophen (Tylenol Extra Strength) 1,000 mg PO Q4H PRN PRN Reason: Pain Last Admin: 09/07/19 03:45 Dose: 1,000 mg Benzocaine/Menthol (Dermoplast Pain Relief 20%-0.5% [place]) 78 gm TOP ASDIRECTED PRN PRN Reason: Perineal Comfort Measure Last Admin: 09/06/19 09:31 Dose: 1 canister Bisacodyl (Dulcolax) 10 mg RECTAL ONETIME PRN PRN Reason: Constipation Butorphanol Tartrate (Stadol) 1 mg IVPUSH Q1H PRN PRN Reason: Pain Carboprost Tromethamine (Hemabate Ds) 250 mcg IM ASDIRECTED PRN PRN Reason: Post Hemorrhage Docusate Sodium (Colace) 100 mg PO BID PRN PRN Reason: Constipation Last Admin: 09/06/19 21:35 Dose: 100 mg Emollient Ointment (Lansinoh Hpa) 0 gm TOP ASDIRECTED PRN PRN Reason: Sore Nipples Last Admin: 09/06/19 09:30 Dose: 1 tube Tranexamic Acid 1,000 mg/ (Sodium Chloride) 110 mls @ 660 mls/hr IV ONETIME PRN PRN Reason: Bleeding Lactated Ringer's (Ringers, Lactated) 1,000 mls @ 150 mls/hr IV ASDIRECTED BARBARA Last Infusion: 09/06/19 01:54 Dose: 150 mls/hr Oxytocin/Sodium Chloride (Oxytocin 30 Unit/500 Ml-Ns) 30 unit in 500 mls @ 999 mls/hr IV TITRATE BARBARA Last Infusion: 09/06/19 07:50 Dose: 500 mls/hr Oxytocin/Sodium Chloride (Oxytocin 30 Unit/500 Ml-Ns) 30 unit in 500 mls @ 2 mls/hr IV TITRATE BARBARA; Protocol Last Infusion: 09/06/19 07:36 Dose: 0 munits/min, 0 mls/hr Ibuprofen (Motrin) 400 mg PO Q4H PRN PRN Reason: Pain Ibuprofen (Motrin) 800 mg PO Q6H PRN PRN Reason: Pain Last Admin: 09/07/19 06:14 Dose: 800 mg Lidocaine HCl (Xylocaine 1%) 50 ml INJECT ONETIME PRN PRN Reason: Laceration repair Methylergonovine Maleate (Methergine) 0.2 mg IM ASDIRECTED PRN PRN Reason: Post Hemorrhage Misoprostol (Cytotec) 200 mcg PO ONETIME PRN PRN Reason: Post Hemorrhage Nalbuphine HCl (Nubain) 10 mg IVPUSH Q1H PRN PRN Reason: Pain (severe 7-10) Sodium Chloride (Saline Flush) 10 ml FLUSH ASDIRECTED PRN PRN Reason: Keep Vein Open Sodium Chloride (Saline Flush) 2.5 ml FLUSH ASDIRECTED PRN PRN Reason: Keep Vein Open Sodium Chloride (Normal Saline) 10 ml IV ASDIRECTED PRN PRN Reason: IV Use Sterile Water (Sterile Water For Irrigation) 1,000 ml IRR ASDIRECTED PRN PRN Reason: delivery Last Admin: 09/06/19 07:30 Dose: 1,000 ml Witch Fe (Tucks) 1 pad TOP ASDIRECTED PRN PRN Reason: comfort care Last Admin: 09/06/19 09:31 Dose: 1 tub Discontinued Medications Fentanyl (Sublimaze) Confirm Administered Dose 100 mcg .ROUTE .STK-MED ONE Stop: 09/06/19 01:10 Ropivacaine (Naropin 0.2%) Confirm Administered Dose 100 mls @ as directed .ROUTE .STK-MED ONE Stop: 09/06/19 01:10 - Interaction Disposition, : [facility] [place] in Room with Family Interaction: Holding Infant Feeding: Breastfed ; Nursed Well Support Person: - Recovery Exam Fundal Tone: Firm Fundal Level: 1 Fingerbreadths Below Umbilicus Fundal Placement: Midline Lochia Amount: Small Lochia Color: Rubra/Red Perineum Description: Intact, Minimal Bruising/Swelling Bladder Status: Voiding - Exam General: Alert, Oriented Lungs: Normal Respiratory Effort GI/Abdominal Exam: Soft, Non-Tender, No Organomegaly, No Distention Extremities: Normal Range of Motion, No Pedal Edema, Normal Capillary Refill Skin: Warm, Dry, Intact Neurological: No New Focal Deficit Psy/Mental Status: Alert, Normal Affect, Normal Mood - Problem List Review Problem List Initiated/Reviewed/Updated: Yes - My Orders Last 24 Hours: My Active Orders 09/07/19 10:28 Ready for Discharge [RC] PER UNIT ROUTINE - Assessment Assessment:: 2PPD#1 after , stable minimal lochia, tolerating regular diet. well. - Plan Plan:: Dismiss to home, discharge instruction given.
== END 2019-09-07 11:05 | disposition home or self-care (01) | DRG 560 ==
LOC: MW.OB 20:12 → MW.OBCHECK 20:12 → MW.OB 22:06 → OBSVTOIN 09-06 07:34 → MW.OB 09-06 16:44
PROVIDERS: ADMIT Obstetrics & Gynecology; ATTEND Obstetrics & Gynecology
PROC: 10E0XZZ Delivery of Products of Conception, External Approach (ICD-10-PCS; principal; 2019-09-06)
PROC: 10907ZC Drainage of Amniotic Fluid, Therapeutic from Products of Conception, Via Natural or Artificial Opening (ICD-10-PCS; 2019-09-06)
PROC: 0HQ9XZZ Repair Perineum Skin, External Approach (ICD-10-PCS; 2019-09-06)
PROC: 3E0R3BZ Introduction of Anesthetic Agent into Spinal Canal, Percutaneous Approach (ICD-10-PCS; 2019-09-06)
PROC: 00HU33Z Insertion of Infusion Device into Spinal Canal, Percutaneous Approach (ICD-10-PCS; 2019-09-06)
DX: O48.0 Post-term pregnancy (principal); Z37.0 Single live birth; O70.0 First degree perineal laceration during delivery; Z3A.40 40 weeks gestation of pregnancy; O69.1XX0 Labor and delivery complicated by cord around neck, with compression, not applicable or unspecified
CPT/HCPCS: 01967; 36415; 51702; 59025; 59409; 85014; 85018; 85027; 86592; 86593; 86850; 86900; 86901; A9270-GY; J2590; J2795; J3010; J7120

== ENCOUNTER 2021-02-16 09:05 | Inpatient (IN) | payer MEDICAID ==
[2021-02-16] MEDS ORDERED: Water For Irrigation,Sterile 1,000 ML Container IRR PRN (09:30)
[2021-02-16] MEDS ORDERED: Sodium Chloride 0.9% 10 ML Syringe FLUSH PRN (09:30)
[2021-02-16] MEDS ORDERED: Tranexamic Acid 1,000 MG in Sodium Chloride 0.9% 100 ML IV PRN (09:30)
[2021-02-16] MEDS ORDERED: Misoprostol 200 MCG Tab PO PRN (09:30)
[2021-02-16] MEDS ORDERED: Butorphanol 1 MG/ML SDV IVPUSH PRN (09:30)
[2021-02-16] MEDS ORDERED: Sodium Chloride 0.9% 20 ML SDV IV PRN (09:30)
[2021-02-16] MEDS ORDERED: Oxytocin/0.9 % Sodium Chloride 30 UNIT/500 ML BAG IV SCH ×2 (09:30→15:45)
[2021-02-16] MEDS ORDERED: Carboprost Tromethamine 250 MCG/1 ML Amp IM PRN (09:30)
[2021-02-16] MEDS ORDERED: Methylergonovine 0.2 MG/1 ML Amp IM PRN (09:30)
[2021-02-16] MEDS ORDERED: Sodium Chloride 0.9% 2.5 ML Syringe FLUSH PRN (09:30)
[2021-02-16] MEDS ORDERED: Ondansetron 4 MG/2 ML SDV IVPUSH PRN (09:30)
[2021-02-16] MEDS ORDERED: Lidocaine 1% 50 ML MDV INJECT PRN (09:30)
[2021-02-16] MEDS: Lactated Ringers 1,000 ML IV SCH ×2 (09:59→16:02)
[2021-02-16] MEDS ORDERED: Ropivacaine HCl/PF 200 ML ONE (18:21)
--- NOTE | 2021-02-16 18:40 | PCM.PREANE ---
Preanesthetic Assessment - Anesthesia/Transfusion/Family Hx Anesthesia History: Prior Anesthesia Without Reaction Transfusion History: No Prior Transfusion(s) - Review of Systems General: No Symptoms Pulmonary: No Symptoms Cardiovascular: No Symptoms Gastrointestinal: No Symptoms Neurological: No Symptoms Other: Reports: None - Physical Assessment NPO Status Date: 02/16/21 NPO Status Time: 12:00 Height: 5 ft 9 in Weight: 253 lb ASA Class: 2 Mental Status: Alert & Oriented x3 Airway Class: Mallampati = 2 Dentition: Reports: Normal Dentition ROM/Head Extension: Full Lungs: Clear to Auscultation, Normal Respiratory Effort Cardiovascular: Regular Rate, Regular Rhythm - Lab Values: Laboratory Last Values WBC 8.19 K/uL (4.0-11.0) 02/16/21 10:11 RBC 4.02 M/uL (4.30-5.90) L 02/16/21 10:11 Hgb 12.0 g/dL (12.0-16.0) 02/16/21 10:11 Hct 36.0 % (36.0-46.0) 02/16/21 10:11 MCV 89.6 fL (80.0-98.0) 02/16/21 10:11 MCH 29.9 pg (27.0-32.0) 02/16/21 10:11 MCHC 33.3 g/dL (31.0-37.0) 02/16/21 10:11 RDW Std Deviation 45.1 fl (28.0-62.0) 02/16/21 10:11 RDW Coeff of Yohan 14 % (11.0-15.0) 02/16/21 10:11 Plt Count 161 K/uL (150-400) 02/16/21 10:11 MPV 13.40 fL (7.40-12.00) H 02/16/21 10:11 Nucleated RBC % 0.0 /100WBC 02/16/21 10:11 Nucleated RBCs # 0 K/uL 02/16/21 10:11 SARS-CoV-2 RNA (JARED) NEGATIVE (NEGATIVE) 02/16/21 09:25 Blood Type AB POSITIVE 02/16/21 10:11 Antibody Screen NEGATIVE 02/16/21 10:11 - Allergies Allergies/Adverse Reactions: Allergies Allergy/AdvReac Type Severity Reaction Status Date / Time No Known Allergies Allergy Verified 03/31/14 06:45 - Acknowledgements Anesthesia Type Planned: Epidural Pt an Appropriate Candidate for the Planned Anesthesia: Yes Alternatives and Risks of Anesthesia Discussed w Pt/Guardian: Yes Pt/Guardian Understands and Agrees with Anesthesia Plan: Yes PreAnesthesia Questionnaire - Past Health History Medical/Surgical History: Denies Medical/Surgical History Cardiovascular History: Reports: None Respiratory History: Reports: None Gastrointestinal History: Reports: None Genitourinary History: Reports: None FILLING TECHNICIAN History: Reports: , Spontaneous Musculoskeletal History: Reports: Other (See Below) Other Musculoskeletal History: Carpal tunnel syndrome Neurological History: Reports: None Psychiatric History: Reports: None Endocrine/Metabolic History: Reports: None Hematologic History: Reports: None Immunologic History: Reports: None Oncologic (Cancer) History: Reports: None Dermatologic History: Reports: None - Infectious Disease History Infectious Disease History: Reports: Chicken Pox - Past Surgical History Head Surgeries/Procedures: Reports: None - SUBSTANCE USE Tobacco Use Status *Q: Never Tobacco User Second Hand Smoke Exposure: No Recreational Drug Use History: No - HOME MEDS Home Medications: Home Meds . [No Known Home Meds] 09/05/19 [History] - CURRENT (IN HOUSE) MEDS Current Meds: Current Medications Butorphanol Tartrate (Butorphanol 1 Mg/Ml Sdv) 1 mg IVPUSH Q1H PRN PRN Reason: Pain (severe 7-10) Carboprost Tromethamine (Carboprost Tromethamine 250 Mcg/1 Ml Amp) 250 mcg IM ASDIRECTED PRN PRN Reason: Post Hemorrhage Oxytocin/Sodium Chloride (Oxytocin 30 Unit In Ns 0.9% 500 Ml Premix) 30 unit in 500 mls @ 999 mls/hr IV TITRATE BARBARA Tranexamic Acid 1,000 mg/ (Sodium Chloride) 110 mls @ 660 mls/hr IV ONETIME PRN PRN Reason: Bleeding Lactated Ringer's (Ringers, Lactated) 1,000 mls @ 150 mls/hr IV ASDIRECTED BARBARA Last Admin: 02/16/21 16:02 Dose: 150 mls/hr Documented by: Oxytocin/Sodium Chloride (Oxytocin 30 Unit In Ns 0.9% 500 Ml Premix) 30 unit in 500 mls @ 2 mls/hr IV TITRATE BARBARA; Protocol Last Infusion: 02/16/21 18:11 Dose: 8 munits/min, 8 mls/hr Documented by: Lidocaine HCl (Lidocaine 1% 50 Ml Mdv) 50 ml INJECT ONETIME PRN PRN Reason: Laceration repair Methylergonovine Maleate (Methylergonovine 0.2 Mg/1 Ml Amp) 0.2 mg IM ASDIRECTED PRN PRN Reason: Post Hemorrhage Misoprostol (Misoprostol 200 Mcg Tab) 200 mcg PO ONETIME PRN PRN Reason: Post Hemorrhage Ondansetron HCl (Ondansetron 4 Mg/2 Ml Sdv) 4 mg IVPUSH Q4H PRN PRN Reason: Nausea/Vomiting Sodium Chloride (Sodium Chloride 0.9% 10 Ml Syringe) 10 ml FLUSH ASDIRECTED PRN PRN Reason: Keep Vein Open Sodium Chloride (Sodium Chloride 0.9% 2.5 Ml Syringe) 2.5 ml FLUSH ASDIRECTED PRN PRN Reason: Keep Vein Open Sodium Chloride (Sodium Chloride 0.9% 20 Ml Sdv) 10 ml IV ASDIRECTED PRN PRN Reason: IV Use Sterile Water (Water For Irrigation,Sterile 1,000 Ml Container) 1,000 ml IRR ASDIRECTED PRN PRN Reason: delivery Discontinued Medications Ropivacaine (Naropin 0.2%) Confirm Administered Dose 200 mls @ as directed .ROUTE .[facility]-MED ONE Stop: 02/16/21 18:22
--- NOTE | 2021-02-16 18:41 | PCM.POSTAN ---
POST ANESTHESIA ASSESSMENT - MENTAL STATUS Mental Status: Alert, Oriented - RESPIRATORY Respiratory Status: Respiratory Rate WNL, Airway Patent, O2 Saturation Stable - CARDIOVASCULAR CV Status: Pulse Rate WNL, Blood Pressure Stable - GASTROINTESTINAL GI Status: No Symptoms - POST OP HYDRATION Hydration Status: Adequate & Stable
--- NOTE | 2021-02-16 18:42 | PCM.SN.2 ---
- Pre-Procedure Checklist Attending Provider Aware: Yes Chart Reviewed: Yes Consent Signed: Yes Labs Reviewed: Yes VS/FHR Reviewed: Yes Patient Identification Confirmation Method: Reports: Chart Visual, ID Band Visual, Verbal Patient Pt an Appropriate Candidate for the Planned Anesthesia: Yes Alternatives and Risks of Anesthesia Discussed w Pt/Guardian: Yes - Procedure Procedure Start Date: 02/16/21 Procedure Start Time: 18:[address]: Reports: Blood Pressure, Heart Rate, SPO2 Functional IV: Yes Safety Measures: Reports: Patient Identified, Procedure Verified, Site Verified, Procedure Time Out Prep: Reports: Alcohol x3, Betadine x3 Local Anesthetic: Reports: Intradermal Wheal w Lidocaine 1% Regional Placement Level: Reports: L2-3 Needle: Reports: 17 g Touhy Approach: Reports: Midline Technique: Reports: SAUNDRA Glass Syringe Parasthesia: Reports: None Fluid Obtained: Reports: None Test Dose Medication: Reports: Lidocaine 1.5% w Epinephrine 1:200,000 Test Dose Response: Reports: Negative Continuous Infusion Medication: 0.2% Naropin Continuous Infusion Rate: 18 Continuous Infusion PCS Bolus Option: 4 Patient Position Post Placement: Reports: Supline/ELANA VS and FHR Monitored in Unit Post Placement: Yes Procedure End Date: 02/16/21 Procedure End Time: 19:00
[2021-02-16] MEDS ORDERED: ePHEDrine 50 MG/ML SDV IVPUSH PRN ×2 (18:44)
[2021-02-16] MEDS ORDERED: Ropivacaine/PF 400 MG/200 ML PCA EPIDUR SCH (18:45)
--- NOTE | 2021-02-16 21:49 | PCM.OPNOTE ---
- General Post-Op/Procedure Note Date of Surgery/Procedure: 02/16/21 Operative Procedure(s): /IP Findings: Viable male APGARs 8, 9 weight 4560 gm. Spontaneous delivery intact placenta with 3V cord Pre Op Diagnosis: 38/6 week IUP. macrosomia Post-Op Diagnosis: Same Anesthesia Technique: Epidural Primary Surgeon: Mecca Wagner EBL in mLs: 300 Complications: none known Condition: Good Free Text/Narrative:: Dictation [id number]
[2021-02-16] MEDS ORDERED: Bisacodyl 10 MG Supp RECTAL PRN (21:57)
[2021-02-16] MEDS ORDERED: Benzocaine/Menthol 20%-0.5% Spray 78 GM Cannister TOP PRN (21:57)
[2021-02-16] MEDS ORDERED: Acetaminophen 500 MG Tab PO PRN ×2 (21:57)
[2021-02-16] MEDS ORDERED: Ibuprofen 400 MG Tab PO PRN (21:57)
[2021-02-16] MEDS ORDERED: Lanolin 100% Cream 7 GM Tube TOP PRN (21:57)
[2021-02-16] MEDS ORDERED: Witch Hazel Medicated Pads 40/Jar TOP PRN (21:57)
[2021-02-16] MEDS ORDERED: oxyCODONE 5 MG Tab PO PRN (21:57)
--- NOTE | 2021-02-16 23:26 | OR ---
SURGEON: Mecca Wagner M.D. DATE OF PROCEDURE: 02/16/2021 PREOPERATIVE DIAGNOSES: 1. 38 and 6 weeks intrauterine . 2. macrosomia. POSTOPERATIVE DIAGNOSES: 1. 38 and 6 weeks intrauterine . 2. macrosomia. PROCEDURE: Spontaneous vaginal delivery, intact perineum. PRIMARY SURGEON: Mecca Wagner M.D. ANESTHESIA: Epidural. BLOOD LOSS: 300 mL. COMPLICATIONS: None known. FINDINGS: Viable male. score of 8 at one minute and 9 at five minutes. Weight of 4560 g. Spontaneous delivery, intact placenta, 3-vessel cord. DISPOSITION: Infant to nursery, mom in LDRP. PROCEDURE IN DETAIL: Darlene is a 30-year-old G9, P6, who presents today for scheduled induction of labor due to macrosomia. Estimated weight is 10 pound 7 ounces. The patient has declined an elective section due to macrosomia. The patient was admitted, routine labs drawn. COVID is negative. She underwent amniotomy as she is group B strep negative. She is found to be 2 to 3 cm, 70% effaced, -2 station. With amniotomy, clear fluid returned, and with being observed for the next few hours, did not make any significant cervical change or have regular contractions. Therefore, initiated Pitocin augmentation, responded nicely to this, became more uncomfortable, underwent regional anesthesia in the form of epidural. At that time, she was found to be 5 cm. Shortly before 7 p.m., she was found to be 7 cm and continued to progress with heart tones of category 1. Shortly after 9 p.m., she was found to be complete, 100% effaced, +2 station, was called for delivery. Upon my arrival, patient was placed in modified dorsal lithotomy position, prepped and draped in the usual aseptic manner. With the next 2 contractions, I was able to push deliver the 's head atraumatically spontaneously, followed by anterior shoulder, posterior shoulder, and remaining body. The 's oropharynx and nares were bulb suctioned. Loose nuchal cord x1 reduced manually. After bulb suctioning of the oropharynx and nares, infant was handed off to his mother with attending nursery staff at the side. After a delay, the cord was clamped x2 and cut. Cord arterial, cord venous, cord blood sampling obtained. Light suprapubic pressure was applied while the placenta was delivered spontaneously intact. Vigorous fundal and uterine massage was then applied with 20 units of Pitocin was delivered in 500 mL of IV fluid. Upon inspection, cervix, vaginal sidewalls, and perineum were found to be intact. The patient tolerated the procedure well overall. Hemostasis was evident. Uterus remained firm. Sponge count and instrument count were correct. The patient remained in LDRP, to nursery. RENETTA / JUWAN /[id number]
[2021-02-17] MEDS: Docusate Sodium 100 MG Cap PO PRN ×2 (02:35→14:54)
[2021-02-17] MEDS: Ibuprofen 800 MG Tab PO PRN ×2 (02:35→14:52)
--- NOTE | 2021-02-17 06:58 | PCM.PNPP ---
- General Info Date of Service: 02/17/21 Functional Status: Reports: Pain Controlled, Tolerating Diet, Ambulating, Urinating - Review of Systems General: Reports: Fatigue. Denies: Fever, Weakness Pulmonary: Denies: Shortness of Breath Cardiovascular: Denies: Chest Pain, Palpitations, Lightheadedness Gastrointestinal: Denies: Abdominal Pain, Nausea, Vomiting Genitourinary: Denies: Flank Pain Musculoskeletal: Reports: No Symptoms Skin: Reports: No Symptoms Neurological: Reports: No Symptoms Psychiatric: Reports: No Symptoms - General Info Date of Service: 02/17/21 - Patient Data Vital Signs - Most Recent: Last Vital Signs Temp 36.3 C 02/17/21 05:00 Pulse 102 H 02/17/21 05:00 Resp 18 02/17/21 05:00 BP 122/91 H 02/17/21 05:00 Pulse Ox 94 L 02/17/21 05:00 Weight - Most Recent: 114.759 kg Lab Results - Last 24 Hours: Laboratory Results - last 24 hr 02/16/21 02/16/21 02/16/21 Range/Units 09:25 10:11 10:11 WBC 8.19 (4.0-11.0) K/uL RBC 4.02 L (4.30-5.90) M/uL Hgb 12.0 (12.0-16.0) g/dL Hct 36.0 (36.0-46.0) % MCV 89.6 (80.0-98.0) fL MCH 29.9 (27.0-32.0) pg MCHC 33.3 (31.0-37.0) g/dL RDW Std Deviation 45.1 (28.0-62.0) fl RDW Coeff of Yohan 14 (11.0-15.0) % Plt Count 161 (150-400) K/uL MPV 13.40 H (7.40-12.00) fL Nucleated RBC % 0.0 /100WBC Nucleated RBCs # 0 K/uL Cord ABG pH (7.18-7.38) Cord ABG Base Excess (-10--2) Cord VBG pH (7.25-7.45) Cord VBG Base Excess (-10--2) SARS-CoV-2 RNA (JARED) NEGATIVE (NEGATIVE) Blood Type AB POSITIVE Antibody Screen NEGATIVE 02/16/21 02/17/21 Range/Units 21:22 06:05 WBC (4.0-11.0) K/uL RBC (4.30-5.90) M/uL Hgb 10.4 L (12.0-16.0) g/dL Hct 31.3 L (36.0-46.0) % MCV (80.0-98.0) fL MCH (27.0-32.0) pg MCHC (31.0-37.0) g/dL RDW Std Deviation (28.0-62.0) fl RDW Coeff of Yohan (11.0-15.0) % Plt Count (150-400) K/uL MPV (7.40-12.00) fL Nucleated RBC % /100WBC Nucleated RBCs # K/uL Cord ABG pH 7.215 (7.18-7.38) Cord ABG Base Excess -5 (-10--2) Cord VBG pH 7.285 (7.25-7.45) Cord VBG Base Excess -5 (-10--2) SARS-CoV-2 RNA (JARED) (NEGATIVE) Blood Type Antibody Screen Med Orders - Current: Current Medications Acetaminophen (Acetaminophen 500 Mg Tab) 500 mg PO Q4H PRN PRN Reason: Pain (mild 1-3) Acetaminophen (Acetaminophen 500 Mg Tab) 1,000 mg PO Q4H PRN PRN Reason: Pain (moderate 4-6) Benzocaine/Menthol (Benzocaine/Menthol 20%-0.5% [place] 78 Gm Cannister) 78 gm TOP ASDIRECTED PRN PRN Reason: Perineal Comfort Measure Last Admin: 02/17/21 02:37 Dose: 1 spray Documented by: Bisacodyl (Bisacodyl 10 Mg Supp) 10 mg RECTAL ONETIME PRN PRN Reason: Constipation Carboprost Tromethamine (Carboprost Tromethamine 250 Mcg/1 Ml Amp) 250 mcg IM ASDIRECTED PRN PRN Reason: Post Hemorrhage Docusate Sodium (Docusate Sodium 100 Mg Cap) 100 mg PO Q12H PRN PRN Reason: Constipation Last Admin: 02/17/21 02:35 Dose: 100 mg Documented by: Emollient Ointment (Lanolin 100% Cream 7 Gm Tube) 0 gm TOP ASDIRECTED PRN PRN Reason: Sore Nipples Last Admin: 02/17/21 02:37 Dose: 1 applic Documented by: Ephedrine Sulfate (Ephedrine 50 Mg/Ml Sdv) 10 mg IVPUSH Q1M PRN PRN Reason: Hypotension Ephedrine Sulfate (Ephedrine 50 Mg/Ml Sdv) 10 mg IVPUSH Q5M PRN PRN Reason: Hypotension Oxytocin/Sodium Chloride (Oxytocin 30 Unit In Ns 0.9% 500 Ml Premix) 30 unit in 500 mls @ 999 mls/hr IV TITRATE BARBARA Tranexamic Acid 1,000 mg/ (Sodium Chloride) 110 mls @ 660 mls/hr IV ONETIME PRN PRN Reason: Bleeding Lactated Ringer's (Ringers, Lactated) 1,000 mls @ 150 mls/hr IV ASDIRECTED BARBARA Last Admin: 02/16/21 16:02 Dose: 150 mls/hr Documented by: Oxytocin/Sodium Chloride (Oxytocin 30 Unit In Ns 0.9% 500 Ml Premix) 30 unit in 500 mls @ 2 mls/hr IV TITRATE BARBARA; Protocol Last Infusion: 02/16/21 18:11 Dose: 8 munits/min, 8 mls/hr Documented by: Ibuprofen (Ibuprofen 400 Mg Tab) 400 mg PO Q4H PRN PRN Reason: Pain (mild 1-3) Ibuprofen (Ibuprofen 800 Mg Tab) 800 mg PO Q6H PRN PRN Reason: Cramping Last Admin: 02/17/21 02:35 Dose: 800 mg Documented by: Methylergonovine Maleate (Methylergonovine 0.2 Mg/1 Ml Amp) 0.2 mg IM ASDIRECTED PRN PRN Reason: Post Hemorrhage Miscellaneous Medication (Phenylephrine Hcl In 0.9% Nacl 1 Mg/10 Ml Syringe) 0.1 mg IVPUSH Q1M PRN PRN Reason: Hypotension Misoprostol (Misoprostol 200 Mcg Tab) 200 mcg PO ONETIME PRN PRN Reason: Post Hemorrhage Ondansetron HCl (Ondansetron 4 Mg/2 Ml Sdv) 4 mg IVPUSH Q4H PRN PRN Reason: Nausea/Vomiting Oxycodone HCl (Oxycodone 5 Mg Tab) 5 mg PO Q2H PRN PRN Reason: Pain (severe 7-10) Ropivacaine (Ropivacaine/Pf 400 Mg/200 Ml Ship Surveyor) 400 mg EPIDUR ASDIRECTED BARBARA Sodium Chloride (Sodium Chloride 0.9% 10 Ml Syringe) 10 ml FLUSH ASDIRECTED PRN PRN Reason: Keep Vein Open Sodium Chloride (Sodium Chloride 0.9% 2.5 Ml Syringe) 2.5 ml FLUSH ASDIRECTED PRN PRN Reason: Keep Vein Open Sodium Chloride (Sodium Chloride 0.9% 20 Ml Sdv) 10 ml IV ASDIRECTED PRN PRN Reason: IV Use Sterile Water (Water For Irrigation,Sterile 1,000 Ml Container) 1,000 ml IRR ASDIRECTED PRN PRN Reason: delivery Witch Fe (Witch Fe Medicated Pads 40/Jar) 1 pad TOP ASDIRECTED PRN PRN Reason: comfort care Last Admin: 02/17/21 02:36 Dose: 1 pad Documented by: Discontinued Medications Butorphanol Tartrate (Butorphanol 1 Mg/Ml Sdv) 1 mg IVPUSH Q1H PRN PRN Reason: Pain (severe 7-10) Ropivacaine (Naropin 0.2%) Confirm Administered Dose 200 mls @ as directed .ROUTE .DrAvailable-MED ONE Stop: 02/16/21 18:22 Lidocaine HCl (Lidocaine 1% 50 Ml Mdv) 50 ml INJECT ONETIME PRN PRN Reason: Laceration repair - Infant Interaction Support Person: - Exam General: Alert, Oriented Lungs: Normal Respiratory Effort Cardiovascular: Regular Rate, Regular Rhythm GI/Abdominal Exam: Normal Bowel Sounds, Soft Extremities: Pedal Edema (trace). No: Radha's Sign Skin: Warm, Dry, Intact Neurological: No New Focal Deficit Psy/Mental Status: Alert, Normal Affect, Normal Mood - Problem List & Annotations (1) Vaginal delivery SNOMED Code(s): 246108613 Code(s): O80 - ENCOUNTER FOR FULL-TERM UNCOMPLICATED DELIVERY Status: Acute Current Visit: No - Problem List Review Problem List Initiated/Reviewed/Updated: Yes - My Orders Last 24 Hours: My Active Orders 02/16/21 09:30 Patient Status [ADT] Routine Carboprost Tromethamine [Hemabate DS] 250 mcg IM ASDIRECTED PRN Lactated Ringers [Ringers, Lactated] 1,000 ml IV ASDIRECTED Methylergonovine [Methergine] 0.2 mg IM ASDIRECTED PRN Ondansetron [Zofran] 4 mg IVPUSH Q4H PRN Oxytocin/0.9 % Sodium Chloride [Oxytocin 30 Unit in NS 0.9% 500 ML Premix] 30 unit in 500 ml IV TITRATE Sodium Chloride 0.9% [Normal Saline] 10 ml IV ASDIRECTED PRN Sodium Chloride 0.9% [Saline Flush] 10 ml FLUSH ASDIRECTED PRN Sodium Chloride 0.9% [Saline Flush] 2.5 ml FLUSH ASDIRECTED PRN Tranexamic Acid [Cyklokapron] 1,000 mg Sodium Chloride 0.9% [Normal Saline] 100 ml IV ONETIME Water For Irrigation,Sterile [Sterile Water for Irrigation] 1,000 ml IRR ASDIRECTED PRN miSOPROStoL [Cytotec] 200 mcg PO ONETIME PRN Peripheral IV Insertion Adult [OM.PC] Routine Resuscitation Status Routine 02/16/21 10:11 RPR (SYPHILIS SERO) W/ RFLX [REF] Routine 02/16/21 15:45 Oxytocin/0.9 % Sodium Chloride [Oxytocin 30 Unit in NS 0.9% 500 ML Premix] 30 unit in 500 ml IV TITRATE 02/16/21 Dinner Regular Diet [DIET] 02/16/21 21:57 Patient Status [ADT] Routine May Shower [RC] ASDIRECTED Notify Provider Vital Signs [RC] ASDIRECTED Up ad Cynthia [RC] ASDIRECTED Vital Signs [RC] PER UNIT ROUTINE Acetaminophen [Tylenol Extra Strength] 1,000 mg PO Q4H PRN Acetaminophen [Tylenol Extra Strength] 500 mg PO Q4H PRN Benzocaine/Menthol [Dermoplast Pain Relief 20%-0.5% [place]] 78 gm TOP ASDIRECTED PRN Docusate Sodium [Colace] 100 mg PO Q12H PRN Ibuprofen [Motrin] 400 mg PO Q4H PRN Ibuprofen [Motrin] 800 mg PO Q6H PRN Lanolin [Lansinoh HPA] See Dose Instructions TOP ASDIRECTED PRN bisacodyL [Dulcolax] 10 mg RECTAL ONETIME PRN oxyCODONE 5 mg PO Q2H PRN witch Fe [Tucks] 1 pad TOP ASDIRECTED PRN Assess Lochia [WOMSER] Per Unit Routine Assess Uterine Involution [WOMSER] Per Unit Routine Ice Therapy [OM.PC] Per Unit Routine Perineal Care [OM.PC] Per Unit Routine Peripheral IV Discontinue [OM.PC] Routine Sitz Bath [OM.PC] Per Unit Routine 02/16/21 21:58 Cooling Warming Measures [RC] ASDIRECTED - Assessment Assessment:: PPD 1 status post /IP - Plan Plan:: Doing well overall--continue cares. Labs reassuring. Patient would like to go home tonight if baby able to be discharged. Discharge instructions reviewed. FOllow up at [facility] 4 weeks. Discharge to home tonight.
--- NOTE | 2021-02-17 07:04 | PCM48HPAN ---
Post Anesthesia Note - EVALUATION WITHIN 48HRS OF ANESTHETIC Vital Signs in Normal Range: Yes Patient Participated in Evaluation: Yes Respiratory Function Stable: Yes Airway Patent: Yes Cardiovascular Function Stable: Yes Hydration Status Stable: Yes Pain Control Satisfactory: Yes Nausea and Vomiting Control Satisfactory: Yes Mental Status Recovered: Yes Vital Signs: Last Vital Signs Temp 97.4 F 02/17/21 05:00 Pulse 102 H 02/17/21 05:00 Resp 18 02/17/21 05:00 BP 122/91 H 02/17/21 05:00 Pulse Ox 94 L 02/17/21 05:00
--- NOTE | 2021-02-18 07:34 | PCM.PNPP ---
- General Info Date of Service: 02/18/21 Subjective Update: Patient with minimal bleeding and pain. No concerns overnight. Functional Status: Reports: Pain Controlled, Tolerating Diet, Ambulating, Urinating - Review of Systems General: Reports: No Symptoms HEENT: Reports: No Symptoms Pulmonary: Reports: No Symptoms Cardiovascular: Reports: No Symptoms Gastrointestinal: Reports: No Symptoms Genitourinary: Reports: No Symptoms Musculoskeletal: Reports: No Symptoms Skin: Reports: No Symptoms Neurological: Reports: No Symptoms Psychiatric: Reports: No Symptoms - Patient Data Vital Signs - Most Recent: Last Vital Signs Temp 36.4 C 02/18/21 05:30 Pulse 58 L 02/18/21 05:30 Resp 19 02/18/21 05:30 BP 117/54 L 02/18/21 05:30 Pulse Ox 97 02/18/21 05:30 Weight - Most Recent: 114.759 kg Lab Results - Last 24 Hours: Laboratory Results - last 24 hr 02/16/21 Range/Units 10:11 RPR Non-Reac (Non-Reac) Med Orders - Current: Current Medications Acetaminophen (Acetaminophen 500 Mg Tab) 500 mg PO Q4H PRN PRN Reason: Pain (mild 1-3) Acetaminophen (Acetaminophen 500 Mg Tab) 1,000 mg PO Q4H PRN PRN Reason: Pain (moderate 4-6) Benzocaine/Menthol (Benzocaine/Menthol 20%-0.5% [place] 78 Gm Cannister) 78 gm TOP ASDIRECTED PRN PRN Reason: Perineal Comfort Measure Last Admin: 02/17/21 02:37 Dose: 1 spray Documented by: Bisacodyl (Bisacodyl 10 Mg Supp) 10 mg RECTAL ONETIME PRN PRN Reason: Constipation Carboprost Tromethamine (Carboprost Tromethamine 250 Mcg/1 Ml Amp) 250 mcg IM ASDIRECTED PRN PRN Reason: Post Hemorrhage Docusate Sodium (Docusate Sodium 100 Mg Cap) 100 mg PO Q12H PRN PRN Reason: Constipation Last Admin: 02/17/21 14:54 Dose: 100 mg Documented by: Emollient Ointment (Lanolin 100% Cream 7 Gm Tube) 0 gm TOP ASDIRECTED PRN PRN Reason: Sore Nipples Last Admin: 02/17/21 02:37 Dose: 1 applic Documented by: Ephedrine Sulfate (Ephedrine 50 Mg/Ml Sdv) 10 mg IVPUSH Q1M PRN PRN Reason: Hypotension Ephedrine Sulfate (Ephedrine 50 Mg/Ml Sdv) 10 mg IVPUSH Q5M PRN PRN Reason: Hypotension Oxytocin/Sodium Chloride (Oxytocin 30 Unit In Ns 0.9% 500 Ml Premix) 30 unit in 500 mls @ 999 mls/hr IV TITRATE BARBARA Tranexamic Acid 1,000 mg/ (Sodium Chloride) 110 mls @ 660 mls/hr IV ONETIME PRN PRN Reason: Bleeding Lactated Ringer's (Ringers, Lactated) 1,000 mls @ 150 mls/hr IV ASDIRECTED BARBARA Last Admin: 02/16/21 16:02 Dose: 150 mls/hr Documented by: Oxytocin/Sodium Chloride (Oxytocin 30 Unit In Ns 0.9% 500 Ml Premix) 30 unit in 500 mls @ 2 mls/hr IV TITRATE BARBARA; Protocol Last Infusion: 02/16/21 18:11 Dose: 8 munits/min, 8 mls/hr Documented by: Ibuprofen (Ibuprofen 400 Mg Tab) 400 mg PO Q4H PRN PRN Reason: Pain (mild 1-3) Ibuprofen (Ibuprofen 800 Mg Tab) 800 mg PO Q6H PRN PRN Reason: Cramping Last Admin: 02/17/21 14:52 Dose: 800 mg Documented by: Methylergonovine Maleate (Methylergonovine 0.2 Mg/1 Ml Amp) 0.2 mg IM ASDIRECTED PRN PRN Reason: Post Hemorrhage Miscellaneous Medication (Phenylephrine Hcl In 0.9% Nacl 1 Mg/10 Ml Syringe) 0.1 mg IVPUSH Q1M PRN PRN Reason: Hypotension Misoprostol (Misoprostol 200 Mcg Tab) 200 mcg PO ONETIME PRN PRN Reason: Post Hemorrhage Ondansetron HCl (Ondansetron 4 Mg/2 Ml Sdv) 4 mg IVPUSH Q4H PRN PRN Reason: Nausea/Vomiting Oxycodone HCl (Oxycodone 5 Mg Tab) 5 mg PO Q2H PRN PRN Reason: Pain (severe 7-10) Ropivacaine (Ropivacaine/Pf 400 Mg/200 Ml Passenger Elevator Operator) 400 mg EPIDUR ASDIRECTED BARBARA Sodium Chloride (Sodium Chloride 0.9% 10 Ml Syringe) 10 ml FLUSH ASDIRECTED PRN PRN Reason: Keep Vein Open Sodium Chloride (Sodium Chloride 0.9% 2.5 Ml Syringe) 2.5 ml FLUSH ASDIRECTED PRN PRN Reason: Keep Vein Open Sodium Chloride (Sodium Chloride 0.9% 20 Ml Sdv) 10 ml IV ASDIRECTED PRN PRN Reason: IV Use Sterile Water (Water For Irrigation,Sterile 1,000 Ml Container) 1,000 ml IRR ASDIRECTED PRN PRN Reason: delivery Witch Fe (Witch Fe Medicated Pads 40/Jar) 1 pad TOP ASDIRECTED PRN PRN Reason: comfort care Last Admin: 02/17/21 02:36 Dose: 1 pad Documented by: Discontinued Medications Butorphanol Tartrate (Butorphanol 1 Mg/Ml Sdv) 1 mg IVPUSH Q1H PRN PRN Reason: Pain (severe 7-10) Ropivacaine (Naropin 0.2%) Confirm Administered Dose 200 mls @ as directed .ROUTE .CellVir-MED ONE Stop: 02/16/21 18:22 Lidocaine HCl (Lidocaine 1% 50 Ml Mdv) 50 ml INJECT ONETIME PRN PRN Reason: Laceration repair - Interaction Disposition, : [place] to Nursery Feeding: Breastfed Infant; Nursed Well Support Person: - Recovery Exam Fundal Tone: Firm Fundal Level: 1 Fingerbreadths Below Umbilicus Fundal Placement: Midline Lochia Amount: Scant Lochia Color: Rubra/Red Perineum Description: Intact, Minimal Bruising/Swelling Bladder Status: Voiding Urinary Elimination: Voided - Exam General: Alert, Oriented Neck: Supple Lungs: Normal Respiratory Effort GI/Abdominal Exam: Soft, Non-Tender, No Distention Extremities: Non-Tender, No Pedal Edema Skin: Warm, Dry, Intact Neurological: No New Focal Deficit Psy/Mental Status: Alert, Normal Affect, Normal Mood - Problem List & Annotations (1) Vaginal delivery SNOMED Code(s): 669900669 Code(s): O80 - ENCOUNTER FOR FULL-TERM UNCOMPLICATED DELIVERY Status: Acute Current Visit: No - Problem List Review Problem List Initiated/Reviewed/Updated: Yes - Assessment Assessment:: PPD 2 status post /IP - Plan Plan:: Plan discharge home today if baby cleared by Buckle Sorter, otherwise room in. Reviewed discharge instructions/precautions. All questions answered.
[2021-02-18] MEDS: Docusate Sodium 100 MG Cap PO PRN (09:16)
[2021-02-18] MEDS: Ibuprofen 800 MG Tab PO PRN (09:16)
[2021-02-18 09:50] VITALS: BP 138/75; PULSE 75
== END 2021-02-18 11:12 | disposition home or self-care (01) | DRG 807 ==
LOC: MW.OBCHECK 09:05 → MW.OB 09:30 → OBSVTOIN 21:22 → MW.OB 02-17 01:25
PROVIDERS: ADMIT Obstetrics & Gynecology; ATTEND Obstetrics & Gynecology
PROC: 10E0XZZ Delivery of Products of Conception, External Approach (ICD-10-PCS; principal; 2021-02-16)
PROC: 3E033VJ Introduction of Other Hormone into Peripheral Vein, Percutaneous Approach (ICD-10-PCS; 2021-02-16)
PROC: 3E0R3BZ Introduction of Anesthetic Agent into Spinal Canal, Percutaneous Approach (ICD-10-PCS; 2021-02-16)
PROC: 00HU33Z Insertion of Infusion Device into Spinal Canal, Percutaneous Approach (ICD-10-PCS; 2021-02-16)
DX: O36.63X0 Maternal care for excessive fetal growth, third trimester, not applicable or unspecified (principal); Z37.0 Single live birth; Z3A.38 38 weeks gestation of pregnancy; O69.81X0 Labor and delivery complicated by cord around neck, without compression, not applicable or unspecified; Z20.822 Contact with and (suspected) exposure to COVID-19
CPT/HCPCS: 36415; 51702; 59025; 59409; 82803; 85014; 85018; 85027; 86592; 86850; 86900; 86901; A9270-GY; J2590; J2795; J7120; U0002

== ENCOUNTER 2022-10-12 06:57 | Inpatient (IN) | payer SELFPAY ==
[2022-10-12] MEDS ORDERED: Carboprost Tromethamine 250 MCG/1 mL Vial IM PRN (07:41)
[2022-10-12] MEDS ORDERED: Misoprostol 200 MCG Tab PO PRN (07:41)
[2022-10-12] MEDS ORDERED: Butorphanol 1 MG/ML SDV IVPUSH PRN (07:41)
[2022-10-12] MEDS ORDERED: Water For Irrigation,Sterile 1,000 ML Container IRR PRN (07:41)
[2022-10-12] MEDS ORDERED: Sodium Chloride 0.9% 2.5 ML Syringe FLUSH PRN (07:41)
[2022-10-12] MEDS ORDERED: Tranexamic Acid 1,000 MG in Sodium Chloride 0.9% 100 ML IV PRN (07:41)
[2022-10-12] MEDS ORDERED: Methylergonovine 0.2 MG/1 ML Amp IM PRN (07:41)
[2022-10-12] MEDS ORDERED: Sodium Chloride 0.9% 20 ML SDV IV PRN (07:41)
[2022-10-12] MEDS ORDERED: Sodium Chloride 0.9% 10 ML Syringe FLUSH PRN (07:41)
[2022-10-12] MEDS ORDERED: Lidocaine 1% 50 ML MDV INJECT PRN (07:41)
[2022-10-12] MEDS ORDERED: Ondansetron 4 MG/2 ML SDV IVPUSH PRN (07:41)
[2022-10-12] MEDS ORDERED: Oxytocin/0.9 % Sodium Chloride 30 UNIT/500 ML BAG IV SCH (07:45)
[2022-10-12] MEDS: Lactated Ringers 1,000 ML IV SCH ×2 (08:03→10:29)
[2022-10-12 08:38] LABS: HEMATOCRIT 36.4 % (36.0-46.0); HEMOGLOBIN 12.2 g/dL (12.0-16.0); MEAN CORPUSCULAR HEMOGLOBIN 30.8 pg (27.0-32.0); MEAN CORPUSCULAR HGB CONC 33.5 g/dL (31.0-37.0); MEAN CORPUSCULAR VOLUME 91.9 fL (80.0-98.0); MEAN PLATELET VOLUME 12.1 fL (7.40-12.00); RED BLOOD CELL COUNT 3.96 M/uL (4.30-5.90); WHITE BLOOD CELL COUNT,WBC 10.65 K/uL (4.0-11.0)
[2022-10-12] MEDS ORDERED: Ropivacaine/PF 400 MG/200 ML PCA ONE (08:52)
[2022-10-12] MEDS ORDERED: Bupivacaine 0.5% 10 ML SDV ONE (08:52)
[2022-10-12] MEDS ORDERED: Witch Hazel Medicated Pads 40/Jar TOP PRN (12:32)
[2022-10-12] MEDS ORDERED: Lanolin 100% Cream 7 GM Tube TOP PRN (12:32)
[2022-10-12] MEDS ORDERED: Docusate Sodium 100 MG Cap PO PRN (12:32)
[2022-10-12] MEDS ORDERED: Benzocaine/Menthol 20%-0.5% Spray 78 GM Cannister TOP PRN (12:32)
[2022-10-12] MEDS ORDERED: oxyCODONE 5 MG Tab PO PRN (12:32)
[2022-10-12] MEDS ORDERED: Ibuprofen 400 MG Tab PO PRN (12:32)
[2022-10-12] MEDS ORDERED: Acetaminophen 500 MG Tab PO PRN ×2 (12:32)
[2022-10-12] MEDS ORDERED: Bisacodyl 10 MG Supp RECTAL PRN (12:32)
[2022-10-12 12:54] LABS: PH,UMBILICAL VENOUS 7.292 (7.25-7.45)
[2022-10-12] MEDS: Ibuprofen 800 MG Tab PO PRN (19:31)
[2022-10-13] MEDS: Ibuprofen 800 MG Tab PO PRN (03:28)
[2022-10-13 06:05] LABS: HEMATOCRIT 32.6 % (36.0-46.0); HEMOGLOBIN 10.8 g/dL (12.0-16.0)
[2022-10-13 08:09] VITALS: BP 116/59; PULSE 67
== END 2022-10-13 14:15 | disposition home or self-care (01) | DRG 807 ==
LOC: MW.OBCHECK 06:57 → MW.OB 07:18 → OBSVTOIN 12:15 → MW.OB 18:54
PROVIDERS: ADMIT Obstetrics & Gynecology; ATTEND Obstetrics & Gynecology
PROC: 10E0XZZ Delivery of Products of Conception, External Approach (ICD-10-PCS; principal; 2022-10-12)
PROC: 10907ZC Drainage of Amniotic Fluid, Therapeutic from Products of Conception, Via Natural or Artificial Opening (ICD-10-PCS; 2022-10-12)
PROC: 3E0R3BZ Introduction of Anesthetic Agent into Spinal Canal, Percutaneous Approach (ICD-10-PCS; 2022-10-12)
PROC: 00HU33Z Insertion of Infusion Device into Spinal Canal, Percutaneous Approach (ICD-10-PCS; 2022-10-12)
DX: O80 Encounter for full-term uncomplicated delivery (principal); Z37.0 Single live birth; Z3A.39 39 weeks gestation of pregnancy
CPT/HCPCS: 36415; 51702; 59409; 82803; 85014; 85018; 85027; 86592; 86850; 86900; 86901; A9270-GY; J2590; J2795; J3490; J7120

== ENCOUNTER 2023-11-07 13:45 | Inpatient (IN) | payer SELFPAY ==
[2023-11-07] MEDS ORDERED: Misoprostol 200 MCG Tab PO PRN (14:48)
[2023-11-07] MEDS ORDERED: Tranexamic Acid IN NACL,ISO-OS 1,000 MG in Premix Bag 1 BAG IV PRN (14:48)
[2023-11-07] MEDS ORDERED: Sodium Chloride 0.9% 2.5 ML Syringe FLUSH PRN (14:48)
[2023-11-07] MEDS ORDERED: Terbutaline 1 MG/ML SDV SUBCUT PRN (14:48)
[2023-11-07] MEDS ORDERED: Nalbuphine 10 MG/1 ML Vial IVPUSH PRN (14:48)
[2023-11-07] MEDS ORDERED: Water For Irrigation,Sterile 1,000 ML Container IRR PRN (14:48)
[2023-11-07] MEDS ORDERED: Ondansetron 4 MG/2 ML SDV IVPUSH PRN (14:48)
[2023-11-07] MEDS ORDERED: Lidocaine 1% 50 ML MDV INJECT PRN (14:48)
[2023-11-07] MEDS ORDERED: Methylergonovine 0.2 MG/1 ML Amp IM PRN (14:48)
[2023-11-07] MEDS ORDERED: Sodium Chloride 0.9% 10 ML Syringe FLUSH PRN (14:48)
[2023-11-07] MEDS ORDERED: Sodium Chloride 0.9% 20 ML SDV IV PRN (14:48)
[2023-11-07] MEDS ORDERED: Carboprost Tromethamine 250 MCG/1 mL Vial IM PRN (14:48)
[2023-11-07] MEDS: Lactated Ringers 1,000 ML IV SCH (15:00)
[2023-11-07] MEDS ORDERED: Oxytocin/0.9 % Sodium Chloride 30 UNIT/500 ML BAG IV SCH (15:00)
[2023-11-07] MEDS: Oxytocin/0.9 % Sodium Chloride 30 UNIT/500 ML BAG IV SCH (15:30)
[2023-11-07 15:31] LABS: HEMATOCRIT 33.6 % (37.0-47.0); HEMOGLOBIN 11.4 g/dL (12.0-16.0); MEAN CORPUSCULAR HEMOGLOBIN 29.6 pg (28.0-32.0); MEAN CORPUSCULAR HGB CONC 33.9 g/dL (32.0-36.0); MEAN CORPUSCULAR VOLUME 87.3 fL (83.0-99.0); MEAN PLATELET VOLUME 12.7 fL (9.4-12.3); PLATELET COUNT,PLT 175 K/uL (150-400); RED BLOOD CELL COUNT 3.85 M/uL (4.10-5.30); WHITE BLOOD CELL COUNT,WBC 10.12 K/uL (3.9-11.3)
[2023-11-07] MEDS ORDERED: Phenylephrine HCl In 0.9% NaCl 1 MG/10 ML Syringe ONE (17:24)
[2023-11-07] MEDS ORDERED: Bupivacaine 0.5% 10 ML SDV ONE (17:24)
[2023-11-07] MEDS ORDERED: ePHEDrine 50 MG/ML SDV IVPUSH PRN ×2 (17:47)
[2023-11-07] MEDS ORDERED: Phenylephrine HCl In 0.9% NaCl 1 MG/10 ML Syringe IVPUSH PRN (17:47)
[2023-11-07] MEDS ORDERED: ePHEDrine 50 MG/ML SDV IM PRN (17:48)
[2023-11-07] MEDS ORDERED: Bupivacaine 0.5% 10 ML SDV INJECT ONE (17:48)
[2023-11-07] MEDS: Ropivacaine HCl/PF 200 ML ONE (17:54)
[2023-11-07] MEDS ORDERED: Ropivacaine HCl/PF 400 MG in Premix Bag 1 BAG EPIDUR SCH (18:00)
[2023-11-07] MEDS ORDERED: dexmedeTOMIDine HCl 200 MCG/2 ML SDV EPIDUR SCH (18:00)
[2023-11-07] MEDS: Phenylephrine HCl In 0.9% NaCl 1 MG/10 ML Syringe IVPUSH PRN (21:18)
[2023-11-08] MEDS ORDERED: Hydrocortisone 2.5% Crm 30 GM Tube TOP PRN (01:27)
[2023-11-08] MEDS ORDERED: Acetaminophen 500 MG Tab PO PRN (01:27)
[2023-11-08] MEDS ORDERED: Lanolin 100% Cream 7 GM Tube TOP PRN (01:27)
[2023-11-08] MEDS ORDERED: oxyCODONE 5 MG Tab PO PRN (01:27)
[2023-11-08 02:07] LABS: PH,UMBILICAL ARTERIAL 7.203 (7.18-7.38); PH,UMBILICAL VENOUS 7.285 (7.25-7.45)
[2023-11-08] MEDS: Ibuprofen 800 MG Tab PO PRN (03:55)
[2023-11-08] MEDS: Witch Hazel Medicated Pads 40/Jar TOP PRN (03:56)
[2023-11-08] MEDS: Benzocaine/Menthol 20%-0.5% Spray 78 GM Cannister TOP PRN (03:56)
[2023-11-08] MEDS: Docusate Sodium 100 MG Cap PO PRN (10:44)
[2023-11-08 12:33] LABS: HEMATOCRIT 30.2 % (37.0-47.0); HEMOGLOBIN 10.2 g/dL (12.0-16.0)
[2023-11-09] MEDS: Furosemide 20 MG Tab PO ONE (09:30)
[2023-11-09 10:00] VITALS: BP 113/72; PULSE 67
== END 2023-11-09 11:43 | disposition home or self-care (01) | DRG 807 ==
LOC: MW.OB 13:45 → OBSVTOIN 11-08 01:27 → MW.OB 11-08 05:02
PROVIDERS: ADMIT Obstetrics & Gynecology; ATTEND Obstetrics & Gynecology
PROC: 10E0XZZ Delivery of Products of Conception, External Approach (ICD-10-PCS; principal; 2023-11-08)
DX: O80 Encounter for full-term uncomplicated delivery (principal); Z37.0 Single live birth; Z3A.39 39 weeks gestation of pregnancy
CPT/HCPCS: 01967; 36415; 51702; 59025; 59409; 59414; 82803; 85014; 85018; 85027; 86592; 86850; 86900; 86901; 86920; A9270-GY; J0665; J2371; J2590; J2795; J7120